=== PATIENT | male | born 1960 | race Caucasian/White ===

== ENCOUNTER 2020-10-04 14:38 | Inpatient (IN) | payer OTHER ==
[~2020-10-04 14:38] MED LIST: Dexamethasone 20 MG/5 ML VIAL ONE; Glycopyrrolate 0.2 MG/ML 5 ML SYRINGE ONE; Ketorolac Tromethamine 30 MG/ML VIAL ONE; Lidocaine 1% PF 5 ML VIAL ONE; Ondansetron PF 4 MG/2 ML Vial ONE; PHENYLEPHRINE-NS 100 MCG/ML 10 ML SYRINGE ONE; PROPOFOL 200 MG/20 ML VIAL ONE; Rocuronium Bromide 10 MG/ML (10ML VIAL) ONE; ePHEDrine 50 MG/ML VIAL ONE
[2020-10-04] MEDS ORDERED: Boostrix 0.5 ML (Tdap) VIAL ONE (14:52)
[2020-10-04 14:58] LABS: #Basophils 0.1 thou/uL (0.0-0.2); #Eosinphils 0.3 thou/uL (0.0-0.7); #Monocytes 0.6 thou/uL (0.11-0.59); #Neutrophils 5.5 thou/uL (1.40-6.50); %Basophils 1.2 % (0.0-1.0); %Lymphocytes 23.7 % (21.0-51.0); %Monocytes 7.5 % (0.0-10.0); %Neutrophils 64.6 % (42.0-75.0); Hemoglobin 14.8 g/dL (14.0-18.0); Mean Corpuscular Hemoglobin 33.5 pg (27.0-31.0); Mean Corpuscular Volume 95.5 fL (78.0-98.0); Mean Platelet Volume 8.1 fL (7.4-10.4); Platelet Count 233 thou/uL (130-400); RBC Distribution Width 11.5 % (11.5-14.5); Red Blood Cell (RBC) Count 4.42 mill/uL (4.70-6.10); White Blood Cell (WBC) Count 8.5 thou/uL (4.8-10.8)
[2020-10-04] MEDS ORDERED: Morphine 4 MG/ML VIAL ONE (15:00)
[2020-10-04] MEDS ORDERED: Ondansetron PF 4 MG/2 ML Vial ONE (15:00)
--- NOTE | 2020-10-04 15:04 | RAD ---
Exam: Exam: Left hand 3 views: HISTORY: Injury, cut with chainsaw COMPARISON: None FINDINGS: Soft tissue swelling, irregularity, and injury of the lateral soft tissues of the wrist extending fro m just distal to the radial styloid up to the proximal first metacarpal. There appears to be at least one or 2 probable small foreign bodies. No evidence for fracture, dislocation, or other significant acute osseous abnormality. IMPRESSION: Extensive soft tissue injury to the lateral region of the wrist with probable 2 tiny foreign bodies w ithout overt acute fracture or dislocation.
[2020-10-04 15:06] LABS: PTT 28.6 sec (22.9-36.1); Prothrombin Time 13.5 sec (12.0-14.7)
[2020-10-04 15:07] LABS: ALT (SGPT) 23 U/L (8-55); AST (SGOT) 26 U/L (5-34); Albumin 4.5 g/dL (3.5-5.0); Alkaline Phosphatase 68 U/L (40-110); Anion Gap 13 mmol/L (10-20); BUN (Urea Nitrogen) 10 mg/dL (8.4-25.7); Bilirubin, Total 0.7 mg/dL (0.2-1.2); Calc. Creatinine Clearance 0 mL/min (70-130); Carbon Dioxide 21 mmol/L (22-29); Chloride 103 mmol/L (98-107); Globulin 3.4 g/dL (2.4-3.5); Glucose 112 mg/dL (70-105); Potassium 3.8 mmol/L (3.5-5.1); Protein, Total 7.9 g/dL (6.0-8.3); Sodium 133 mmol/L (136-145)
--- NOTE | 2020-10-04 15:10 | RAD ---
Exam: Left forearm 2 views: HISTORY: Injury from trauma, chainsaw injury, laceration COMPARISON: None FINDINGS: Extensive soft tissue injury involving the lateral and volar aspect of the wrist. No evidence for acu te fracture or dislocation of the forearm. 2 tiny possible foreign bodies were demonstrated in the lateral soft tissues of the wrist on the hand x-ray. IMPRESSION: Extensive soft tissue injury. No overt fracture.
[2020-10-04] MEDS ORDERED: Dextrose 50% Abboject 50 ML SYRINGE SLOW IVP PRN (15:18)
[2020-10-04] MEDS ORDERED: hydrALAZINE 20 MG/ML VIAL SLOW IVP PRN (15:18)
[2020-10-04] MEDS ORDERED: Dextrose 5% in Water 1,000 ML IV PRN (15:18)
[2020-10-04] MEDS ORDERED: Ondansetron PF 4 MG/2 ML Vial IVP PRN (15:18)
[2020-10-04] MEDS ORDERED: Morphine 4 MG/ML VIAL SLOW IVP PRN (15:18)
[2020-10-04] MEDS ORDERED: Acetaminophen/Codeine 30-300mg Tablet PO PRN ×2 (15:20)
[2020-10-04] MEDS ORDERED: Cyclobenzaprine 10 MG TAB PO PRN (15:21)
--- NOTE | 2020-10-04 15:37 | RAD ---
RADIOGRAPH CHEST 1 VIEW: DATE: 10/04/2020 HISTORY: 60-year-old male for preoperative evaluation FINDINGS: There are no airspace densities, pulmonary edema, pneumothorax, or cardiomegaly. The lateral costophr enic angles are sharp. IMPRESSION: No acute cardiopulmonary findings.
--- NOTE | 2020-10-04 16:19 | HP ---
REFERRING PHYSICIAN: Dr. Berger. TRAUMA SURGEON: Dr. Jose. CONSULTING PHYSICIAN: Dr. Raines. HISTORY OF PRESENT ILLNESS: The patient is a 60-year-old male presented to the emergency department by POV after he fell about 5 feet from a ladder. After he fell, a chainsaw fell onto his left upper extremity. His brought him to the emergency department. He was a level 2 trauma activation. He was hemodynamically stable. Upon evaluation, he had two lacerations to the left forearm and left thenar area of the left hand. The patient is right-hand dominant. He is hemodynamically stable. Motor and sensation grossly intact in the left hand. He denies cough, shortness of breath, nausea, vomiting, abdominal pain, chest pain, numbness or tingling in his bilateral upper and lower extremities, back pain or neck pain. REVIEW OF SYSTEMS: All additional 10-point review of systems negative except as indicated above. PAST MEDICAL HISTORY: Hypertension. PAST SURGICAL HISTORY: C-spine surgery, diskectomy. SOCIAL HISTORY: The patient chews tobacco. He drinks between one and three beers a day. He has never had withdrawal type symptoms. He denies any history of drug use. He is an forensic accountant and still works. He does not use any assistive devices to get around. MEDICATIONS: 1. Lisinopril. 2. Metoprolol. 3. Atorvastatin. ALLERGIES: NO KNOWN DRUG ALLERGIES. PHYSICAL EXAMINATION: VITAL SIGNS: Temperature 98.8, pulse 82, respirations 12, oxygen saturation 98% on room air, blood pressure 170/92. PRIMARY SURVEY: Airway intact. Adequate breath sounds bilaterally. 2+ pulses in bilateral radials, femorals, and DPs. Left hand is well perfused. Dressing to left upper extremity is in place. There appears to be no bleeding around the dressing. GCS 15. Gross motor and sensation intact. No signs of active bleeding. The patient does have two lacerations to his left upper extremity, one to the left forearm and one to the left thenar region of the hand. SECONDARY SURVEY: HEAD: Normocephalic and atraumatic. No gross palpable skull deformities or tenderness. EYES: Pupils 3 to 2, equal, round, reactive to light bilaterally. ENT: No signs of trauma. C-SPINE: No step-offs or deformities. Nontender. C-collar not in place. CHEST: Nontender. No crepitus. No abrasions or ecchymosis noted. ABDOMEN: Soft, nontender, nondistended. PELVIS: Stable to palpation. RECTAL: Deferred. GENITOURINARY: Deferred. EXTREMITIES: The patient has about a 5 cm laceration to the left forearm as well as an unknown size laceration to the anterior aspect of the left thenar region of the hand. No other signs of trauma in the bilateral lower and right upper extremity. The patient is right-hand dominant. BACK/SPINE: No step-offs, deformities, or tenderness to palpation of thoracic or lumbar spine. No abrasions or ecchymosis noted. NEUROLOGIC: 5/5 strength in bilateral braille teacher, plantar flexion, dorsiflexion. Gross normal sensation x4 extremities. LABORATORY FINDINGS: White count 8.5, hemoglobin 14.8, hematocrit 42.2, platelets 233. INR 1.0, PTT 28.6. Sodium 133, potassium 3.8, chloride 103, bicarb 21, BUN 10, creatinine 0.83, glucose 112, total bilirubin 0.7, AST 26, ALT 23, alkaline phosphatase 68, plasma alcohol 97. DIAGNOSTIC FINDINGS: X-ray of the left forearm demonstrates extensive soft tissue injury. No overt fracture. X-ray of the left hand demonstrates extensive soft tissue injury to the lateral region of the wrist with probably two tiny foreign bodies without overt acute fracture or dislocation. Chest x-ray demonstrates no acute cardiopulmonary findings. ASSESSMENT: 1. Status post mechanical fall from ladder while intoxicated. 2. Left forearm laceration x1 and left hand laceration x1. No associated fracture but with foreign bodies present. 3. History of hypertension. 4. Acute alcohol intoxication, mild. PLAN: The patient will be admitted to the Trauma Service. He is n.p.o. Dr. Raines of Hand Surgery has been consulted, who plans to take the patient to the OR for washout and evaluation. The patient will likely spend the night as he will need IV antibiotics postoperatively. We will treat him with oral pain medications as well as IV if needed. Repeat blood work in the morning, OT to evaluate the patient tomorrow. Likely discharge home tomorrow. This patient was seen and evaluated by myself and Dr. Jose in the emergency department. Job ID: [id number] [facility]
[2020-10-04 16:28] LABS: SARS-CoV-2 NAA Rapid Test DETECTED (NotDetected)
[2020-10-04] MEDS ORDERED: Gentamicin 80 MG/2 ML VIAL ONE (16:43)
[2020-10-04] MEDS ORDERED: Fentanyl 100 MCG/2 ML VIAL ONE ×2 (16:59→18:41)
[2020-10-04] MEDS ORDERED: HYDROmorphone 0.5 MG/0.5 ML SYRINGE ONE (16:59)
[2020-10-04] MEDS ORDERED: Phenylephrine 10 MG/ML VIAL ONE (17:00)
[2020-10-04] MEDS ORDERED: Meperidine HCl/PF 25 MG/ML VIAL IM PRN (17:01)
[2020-10-04] MEDS ORDERED: Ketorolac Tromethamine 30 MG/ML VIAL IVP PRN (17:01)
[2020-10-04] MEDS ORDERED: Bupivacaine PF 0.5% 30 ML VIAL ONE (17:03)
[2020-10-04] MEDS ORDERED: Bacitracin Zinc Ointment 30 gm TUBE ONE (17:03)
[2020-10-04] MEDS ORDERED: Betamet Acet/Betamet Na Ph 30 MG/5 ML VIAL ONE (17:03)
[2020-10-04] MEDS ORDERED: Sodium Chloride 0.9% 30 ML ONE (17:03)
[2020-10-04] MEDS ORDERED: Promethazine HCl 25 MG/ML VIAL IM PRN (18:32)
[2020-10-04] MEDS ORDERED: Ondansetron HCl/PF 4 MG/2 ML Vial IVP PRN (18:32)
[2020-10-04] MEDS ORDERED: Promethazine HCl 25 MG/ML VIAL SLOW IVP PRN (18:32)
[2020-10-04] MEDS ORDERED: PACU-Morphine 4MG/ML VIAL SLOW IVP PRN (18:32)
[2020-10-04] MEDS ORDERED: HYDROmorphone 2 MG/ML VIAL SLOW IVP PRN (18:32)
[2020-10-04] MEDS ORDERED: Sodium Chloride 0.9% 1,000 ML IV SCH (19:30)
[2020-10-04] MEDS: Senokot S 8.6-50 MG TAB PO SCH (20:30)
[2020-10-04 20:33] VITALS: BMI 25.2
[2020-10-04] MEDS: Famotidine/PF 20 mg/2ml Vial SLOW IVP SCH (21:37)
[2020-10-04] MEDS: Gabapentin 300 MG CAP PO SCH (21:38)
[2020-10-04] MEDS: Gentamicin Sulfate 80 MG in Premix Bag 1 BAG IVPB SCH (21:38)
[2020-10-05] MEDS: Acetaminophen 325 MG TAB PO SCH ×4 (00:27→17:21)
[2020-10-05] MEDS: Vancomycin 1 GM in Premix Bag 1 BAG IVPB SCH ×2 (04:35→16:16)
[2020-10-05] MEDS: Gentamicin Sulfate 80 MG in Premix Bag 1 BAG IVPB SCH ×3 (04:36→21:28)
[2020-10-05] MEDS: Polyethylene Glycol 3350 17 GM Packet PO SCH (07:59)
[2020-10-05] MEDS: Senokot S 8.6-50 MG TAB PO SCH ×2 (07:59→19:11)
[2020-10-05] MEDS: Gabapentin 300 MG CAP PO SCH ×3 (07:59→19:20)
[2020-10-05] MEDS: Famotidine/PF 20 mg/2ml Vial SLOW IVP SCH ×2 (08:00→19:21)
[2020-10-05 08:07] LABS: #Lymphocytes 0.5 thou/uL (1.20-3.40); #Monocytes 0.3 thou/uL (0.11-0.59); #Neutrophils 9.1 thou/uL (1.40-6.50); %Eosinophils 0.1 % (0.0-10.0); %Lymphocytes 4.5 % (21.0-51.0); %Monocytes 3.3 % (0.0-10.0); %Neutrophils 92.1 % (42.0-75.0); Hemoglobin 13.1 g/dL (14.0-18.0); Mean Corpuscular HGB CONC 34.6 g/dL (32.0-36.0); Mean Corpuscular Hemoglobin 33.2 pg (27.0-31.0); Mean Corpuscular Volume 95.9 fL (78.0-98.0); Mean Platelet Volume 8.4 fL (7.4-10.4); Platelet Count 209 thou/uL (130-400); RBC Distribution Width 11.4 % (11.5-14.5); Red Blood Cell (RBC) Count 3.96 mill/uL (4.70-6.10); White Blood Cell (WBC) Count 9.8 thou/uL (4.8-10.8)
[2020-10-05 08:30] LABS: Anion Gap 14 mmol/L (10-20); BUN (Urea Nitrogen) 9 mg/dL (8.4-25.7); Calc. Creatinine Clearance 104 mL/min (70-130); Calcium 8.5 mg/dL (7.8-10.44); Carbon Dioxide 19 mmol/L (22-29); Chloride 104 mmol/L (98-107); Glucose 169 mg/dL (70-105); Magnesium 1.8 mg/dL (1.6-2.6); Phosphorus 2.9 mg/dL (2.3-4.7); Potassium 4.3 mmol/L (3.5-5.1); Sodium 133 mmol/L (136-145)
[2020-10-05] MEDS ORDERED: Sodium Phosphate 15 MMOL in Sodium Chloride 0.9% 250 ML 250 ML IVPB SCH (09:00)
[2020-10-05] MEDS ORDERED: Magnesium 2 GM/50 ML 2 GM in Premix Bag 1 BAG IVPB SCH (09:00)
[2020-10-05] MEDS: Metoprolol Tartrate 50 MG TAB PO SCH (10:36)
[2020-10-05] MEDS: Lisinopril 20 MG TAB PO SCH ×2 (10:36→19:20)
--- NOTE | 2020-10-05 18:40 | PRG ---
DATE OF SERVICE: 10/05/2020 SUBJECTIVE: The patient was seen this morning during rounds. He was sitting up in bed with no signs of acute distress. He had a VAC to his left upper extremity with a postoperative dressing in place. He reports pain is controlled. Motor and sensation intact to left upper extremity. Tolerating a diet. OBJECTIVE: VITAL SIGNS: Temperature 98.9, pulse 84, respirations 16, oxygen saturation 97% on room air, blood pressure 161/81. GENERAL: Well-appearing middle-aged male, sitting up in bed with no signs of acute distress. PULMONARY: Equal chest rise and fall. Clear breath sounds bilaterally. No signs of acute respiratory distress. CARDIAC: Regular rate and rhythm. GASTROINTESTINAL: Abdomen is soft, nontender, and nondistended. EXTREMITIES: 2+ pulses in all extremities. Gross motor and sensation are intact. Postoperative dressing to left upper extremity is clean, dry, and intact. Wound VAC to left hand is in place with dark bloody fluid in canister. NEUROLOGIC: GCS is 15. LABORATORY FINDINGS: White count 9.8, hemoglobin 13.1, hematocrit 37.9, platelets 209. Sodium 133, potassium 4.3, chloride 104, bicarb 19, BUN 9, creatinine 0.85, glucose 169, phosphorus 2.9, magnesium 1.8. DIAGNOSTIC FINDINGS: There are no new diagnostic findings to report. ASSESSMENT: 1. Status post mechanical fall from 5 feet. 2. Laceration to left forearm and left wrist with tendon injury. 3. History of hypertension. PLAN: Continue current diet and pain regimen. Restart home medications. Continue antibiotics per Dr. Raines. Discontinue IV fluids. Discontinue morphine. Replace phosphorus and magnesium. The patient is to go to the OR tomorrow with Dr. Raines. We will follow up his recommendations postop. He will be able to go home. Job ID: [id number]
[2020-10-05 22:33] LABS: SARS-CoV-2 PCR by NAA Not Detected (NotDetected)
[2020-10-06] MEDS: Acetaminophen 325 MG TAB PO SCH ×4 (00:14→18:32)
[2020-10-06] MEDS: Vancomycin 1 GM in Premix Bag 1 BAG IVPB SCH ×2 (05:06→19:32)
[2020-10-06] MEDS: Metoprolol Tartrate 50 MG TAB PO SCH ×2 (05:09→07:54)
[2020-10-06] MEDS: Famotidine/PF 20 mg/2ml Vial SLOW IVP SCH (07:53)
[2020-10-06] MEDS: Lisinopril 20 MG TAB PO SCH (08:30)
[2020-10-06] MEDS: Gabapentin 300 MG CAP PO SCH ×2 (08:31→14:32)
[2020-10-06] MEDS: Polyethylene Glycol 3350 17 GM Packet PO SCH (08:31)
[2020-10-06] MEDS: Senokot S 8.6-50 MG TAB PO SCH (08:32)
[2020-10-06] MEDS ORDERED: ePHEDrine 50 MG/ML VIAL ONE (09:30)
[2020-10-06] MEDS ORDERED: Ondansetron PF 4 MG/2 ML Vial ONE (09:30)
[2020-10-06] MEDS ORDERED: PROPOFOL 200 MG/20 ML VIAL ONE (09:30)
[2020-10-06] MEDS ORDERED: Lidocaine 1% PF 5 ML VIAL ONE (09:30)
[2020-10-06] MEDS ORDERED: Dexamethasone 20 MG/5 ML VIAL ONE (09:30)
[2020-10-06] MEDS ORDERED: Bupivacaine PF 0.5% 30 ML VIAL ONE ×2 (10:41→14:46)
[2020-10-06] MEDS ORDERED: Bacitracin Zinc Ointment 30 gm TUBE ONE (14:46)
[2020-10-06] MEDS ORDERED: Thrombin 5000 UNITS/5 ML VIAL ONE (14:46)
[2020-10-06] MEDS ORDERED: Sodium Chloride 0.9% 0 ML ONE (14:46)
[2020-10-06] MEDS ORDERED: Fentanyl 100 MCG/2 ML VIAL ONE ×2 (15:04→15:46)
--- NOTE | 2020-10-06 15:20 | PQF ---
CLINICAL DOCUMENTATION CLARIFICATION FORM: Dear Dr. Carrasco, HOMER Date: 10/06/2020 1500 Please exercise your independent, professional judgment in responding to the clarification form. Clinical indicators are provided on the bottom of this form for your review. COVID 19 Clarification and Manifestations: Please check appropriate box(es): A. COVID 19 virus diagnosis Validation: [ ] COVID-19 is ruled in (if so, please provide the evidence used to support this diagnosis) [ ] COVID-19 has been ruled out [ ] Other explanation of clinical findings [ X] Unable to determine In addition, please specify: Present on Admission (POA): [ ] Yes [ ] No [X ] Unable to determine For continuity of documentation, please document condition throughout progress notes and discharge summary. Thank You. To be completed by CDI/Coding staff for physician review: Clinical Indicators - Signs / Symptoms / Labs with Results and Location in Medical Record SARS-CoV-2 Rap RNA ( RT-PCR) DETECTED A* (10/04) Today he tested positive for the rapid test. Infection control has advised us to treat the patient in the isolation protocol due to the interval between positive test is close to 90 days. We have advised the patient and to re- test with PCR in 5 days, and quarantine at home till then. ([facility] record) 10/04 Risk Factors with Results and Location in Medical Record Recent positive history of Covid in July ( [facility] Record) 10/04 Treatments with Results and Location in Medical Record Gentamycin IV ( 10/04 present) Isolation protocol Vancomycin IV ( 10/04 present) CDS Signature: Ayanna Varela RN Phone #:[phone] Date: 10/06/2020 This is a permanent part of the Medical Record [facility]
[2020-10-06] MEDS ORDERED: Sodium Chloride 0.9% 20 ML ONE (17:00)
--- NOTE | 2020-10-06 17:16 | PRG ---
DATE OF SERVICE: 10/06/2020 SUBJECTIVE: The patient was seen this morning during rounds with Dr. Uribe. He was sitting up in bed with no signs of acute distress. VAC is in place. The patient is pending OR today with Dr. Raines for re-evaluation of left upper extremity wounds. OBJECTIVE: VITAL SIGNS: Temperature 98.9, pulse 67, respirations 20, oxygen saturation 100% on room air, blood pressure 106/63. GENERAL: Well-appearing elderly male, sitting up in bed with no signs of acute distress. PULMONARY: Equal chest rise and fall. No signs of acute respiratory distress. CARDIAC: Regular rate and rhythm. GI: Abdomen is soft, nontender, nondistended. EXTREMITIES: 2+ pulses in all extremities. Gross motor and sensation intact. Left upper extremity with postop dressing that is clean, dry, and intact. VAC in place with serosanguineous output in canister. NEUROLOGIC: GCS is 15. LABORATORY FINDINGS: There are no new laboratory findings to discuss. DIAGNOSTIC FINDINGS: There are no new diagnostic findings to discuss. ASSESSMENT: 1. Status post mechanical fall from 5 feet. 2. Laceration to left forearm and left wrist with tendon injury. 3. History of hypertension. PLAN: Continue n.p.o. The patient to go to the OR today with Dr. Raines for fixation of multiple left upper extremity tendon injuries. We will continue antibiotics per Dr. Raines's recommendation. We will follow up with further recommendations from Hand Surgery postoperatively. When the patient is ready for discharge, he will be able to go home. This patient was seen and evaluated by Dr. Uribe and myself this morning during rounds. Job ID: [id number]
[2020-10-06 21:13] VITALS: BP 153/79; TEMP 97.6
--- NOTE | 2020-10-07 12:49 | OP ---
DATE OF PROCEDURE: 10/06/2020 PREOPERATIVE DIAGNOSES: 1. Left thumb tendon laceration x3 including the EPB and APL. 2. laceration with exposed joint and bone at the impression fracture . PROCEDURES PERFORMED: 1. EPB tendon laceration repair using flexor tendon programs. 2. APL repair, all 3 sleeves. 3. Microscopic superficial radial nerve repair without complications using microscope and 9-0 Nurolon. 4. Microscopic neuroplasty of all 3 branches of the superficial radial nerve. 5. Application of short-arm splint and thumb spica. ESTIMATED BLOOD LOSS: 25 mL. TOURNIQUET TIME: 111 minutes. INDICATIONS: The patient returns for staged wound management knowing that particle determination would the deciding factor in closure and depth of procedure. DESCRIPTION OF PROCEDURE: After successful general endotracheal anesthesia, the limb prepped and draped. We inspected the limb, found no copious bleeding. We also did not find any particles. So, we felt it was it clean enough for utilization. Once this was done, we used tenotomy scissors, [place] blade, 11 blade knife, curettes, irrigation with 3 L Pulsavac and then 3 L with bulb syringe with antibiotics inside to make sure the wound was clean and it was as far as we could see, tell, smell, and sense. We then released the retinaculum over the first dorsal compartment slightly more palmar, then dorsal but in the midline . This allowed us to visualize the 5 sleeves of tendon within the sheath. This was proximal to the laceration. We first then closed the capsule cover over the trapezium, scaphoid joint with a running 4-0 Vicryl undyed. We then were able to finish debridement and now perform the extensor pollicis longus tendon repair using a suture and this was also done as described above the second sleeve of the four sleeves of the abductor pollicis longus and the EPB. We then used a [id number] buried 4-0 for the small sleeves of the EPB and APL and then oversewed all of these with 6-0 Prolene just as a flexor tendon would be done with the thumb always in extension to accentuate mobilization in the direction of the deformity. At this point, we had repaired EPB, APL, debrided the wound all to include bone and joint. We now brought the microscope onto the field and we visualized superficial radial nerve in multiple sites where laceration occurred. We then placed a performed a neuroplasty, freed the nerve up, and then proceeded with repair simple epitenon closure. The superficial radial nerve was now repaired using microscopic technique after microscopic neuroplasty with 9-0 Nurolon. Then, we had all the tendon repair showing excellent position. We deflated the tourniquet. We closed the wound in 2 layers with a running 4-0 Monocryl undyed and then 4-0 nylon in a mattress pattern interrupted suture to close the epidermis. The patient had excellent hemostasis and a bulky dressing was applied along with a splint and left the operating room without evidence of anesthetic or operative complication. After placing bacitracin, Adaptic, 4 x 4's, and extended, he was placed in a thumb spica splint with a wraparound technique and an ulnar gutter splint for the wrist. Digit was pink and there was no evidence of anesthetic or operative complications. Job ID: [id number]
--- NOTE | 2020-10-07 12:49 | OP ---
DATE OF PROCEDURE: 10/04/2020 PREOPERATIVE DIAGNOSIS: Left thumb multiple tendon laceration, open wound secondary to saw. POSTOPERATIVE DIAGNOSES: 1. Left thumb tendon lacerations times at least 3 superficial nerve laceration. 2. Contaminated wound, too contaminated to close, at the end was approximately 25 x 5 sq cm. FINDINGS: 1. Superficial and marked contamination deep on the skin edges with dirt particles. 2. Open joint with fracture of trapezium. 3. Superficial radial nerve branches x2 lacerated at least. 4. Open joint injury with multiple extensor tendon injuries. Other findings, 1. Intact EPL. 2. Intact median nerve and branches. 3. Intact ulnar nerve. 4. Intact flexor carpi radialis and palmaris longus. PROCEDURES PERFORMED: 1. Debridement of wound, 22 cm, down to and including bone. 2. Debridement of material associated with open fracture. 3. Superficial radial nerve neuroplasty. 4. Application of VAC wound dressing to greater than 100 sq cm. 5. C-arm supervision for debridement of material associated with open fracture. 6. Open treatment of trapezial fracture. INDICATIONS FOR PROCEDURE: Saw to the hand while cutting a tree with contaminated leaf particles seen . DESCRIPTION OF PROCEDURE: After successful general endotracheal anesthesia, the limb was prepped and draped. The patient had the bandage removed, where there was bleeding, but not copious amount, so we prepped and draped. We then exsanguinated the limb and inflated to 250 mmHg. We then debrided the wound using combination of [place] blade, tenotomy scissors, and 11 blade knife and we extended his incisions, where he had approximately 8 cm incision and a 4 cm incision. I extended the incision proximally about 2 cm so they can meet. elevated 1 skin flap, debrided all the multiple particles, which we saw under the loupe magnification, debrided the material associated with the open fracture there was no previous injury. Once we have done all the debridements using instruments listed above and finished the irrigation with 6 L normal saline, Pulsavac pressure, we then brought the loupe onto the field and we found superficial radial nerve and dissected, its most radial 2 branches were cut and we found the donors, but we decided since it was in a dirty wound environment, we did not want to perform a nerve repair, this was neurovascularly compromised, it would not be indicated at this time. We then assessed the wound, dressed it open. We looked inside the pockets of skin folds and decided to not close the wound. He had a VAC dressing applied, it was sq cm, had excellent suctioning, went from the operating room to the floor without evidence of anesthetic complication. Job ID: [id number]
[2020-10-08 09:39] LABS: Fungus Stain Final report (.)
[2020-10-08 09:39] LABS: Fungus Stain Final report (.)
--- NOTE | 2020-10-09 03:49 | PQF ---
CLINICAL DOCUMENTATION CLARIFICATION FORM: Dear : Ari Garibay Date / Time: 10/09/2020347 Please exercise your independent, professional judgment in responding to the clarification form. Clinical indicators are provided on the bottom of this form for your review Please check appropriate box(es): [ ] Excisional Debridement: : [ ] Skin [ ] Subcutaneous [ ] Fascia [ ] Muscle [ ] Tendon [ ] Bone [ ] Non-excisional Debridement: (Removal by ?ushing, brushing, chemical, or washing) Depth / layer: (deepest layer of debridement): [ ] Skin [ ] Subcutaneous [ ] Fascia [ ] Muscle [ ] Tendon [ ] Bone [ ] Other procedure diagnosis [ ] Unable to determine Physician Signature: Date/Time: For continuity of documentation, please document condition throughout progress notes and discharge summary. Thank You. To be completed by CDI/Coding staff for physician review: Present Clinical Indicators - Signs / Symptoms / Labs Results and Location in Medical Record [x] We then debrided the wound using combination of [place] blade, tenotomy scissors, and 11 blade knife and we extended his incisions, where he had approximately 8 cm incision and a 4 cm incision. Operative report 10/04 Dr Raines [x] I extended the incision proximally about 2 cm so they can meet elevated 1 skin rosa debrided all the multiple particles, which we saw under the loupe magnification debrided the material associated with the open fracture there was no previous injury. Operative report 10/04 Dr Raines Present Risk Factors Results and Location in Medical Record [x] 60 year-old Male Operative report 10/04 Dr Raines [x] Open joint with fracture of trapezium Operative report 10/04 Dr Raines [x] Superficial radial nerve branches x2 laceration Operative report 10/04 Dr Raines [x] Open joint injury with multiple extensor tendon injuries Operative report 10/04 Dr Raines Present Treatments Results and Location in Medical Record [x] Debridement of wound 22 cm, down and including bone Operative report 10/04 Dr Raines [x] Debridement of material associated with open fracture Operative report 10/04 Dr Raines CDS/Speech Correction Assistant Signature: Geno Littlejohnkanchan Phone #: ext [phone] Date/Time: 10/09/20347 This is a permanent part of the Medical Record [facility]
[2020-10-09] MEDS ORDERED: Ibuprofen 200 MG TAB PO SCH (22:00)
[2020-10-27 13:11] LABS: Fungus Culture Final report (.); Fungus Culture Result 1 Candida ciferrii (.); Fungus Culture Result 2 Curvularia species (.)
[2020-10-31 09:16] LABS: Fungus Culture Final report (.)
== END 2020-10-06 21:00 | disposition home or self-care (01) | DRG 513 ==
LOC: ERS 14:38 → SDC 16:15 → T4-A 16:26
PROVIDERS: ADMIT Orthopaedic Surgery Hand Surgery; ATTEND Orthopaedic Surgery Hand Surgery
PROC: 01Q60ZZ Repair Radial Nerve, Open Approach (ICD-10-PCS; principal; 2020-10-04)
PROC: 0PBN0ZZ Excision of Left Carpal, Open Approach (ICD-10-PCS; 2020-10-04)
PROC: 0LQ80ZZ Repair Left Hand Tendon, Open Approach (ICD-10-PCS; 2020-10-06)
PROC: 3E0T3BZ Introduction of Anesthetic Agent into Peripheral Nerves and Plexi, Percutaneous Approach (ICD-10-PCS; 2020-10-06)
PROC: 0PDN0ZZ Extraction of Left Carpal, Open Approach (ICD-10-PCS; 2020-10-06)
DX: S62.172B Displaced fracture of trapezium [larger multangular], left wrist, initial encounter for open fracture (principal); U07.1 COVID-19; S66.222A Laceration of extensor muscle, fascia and tendon of left thumb at wrist and hand level, initial encounter; S51.812A Laceration without foreign body of left forearm, initial encounter; W11.XXXA Fall on and from ladder, initial encounter; F10.129 Alcohol abuse with intoxication, unspecified; Y90.4 Blood alcohol level of 80-99 mg/100 ml; I10 Essential (primary) hypertension; Z79.899 Other long term (current) drug therapy; Z23 Encounter for immunization; W29.3XXA Contact with powered garden and outdoor hand tools and machinery, initial encounter; F17.220 Nicotine dependence, chewing tobacco, uncomplicated
CPT/HCPCS: 36415; 71045; 80048; 80053; 80307; 83735; 84100; 85025; 85610; 85730; 86850; 86900; 86901; 87070; 87102; 87205; 87206; 87635; 90471; 90715; 96365; 96375; J0360; J0690; J0702; J1100; J1170; J1580; J1885; J2270; J2370; J2405; J2704; J3010; J3370; J3475; J3490; J7050; S0020; S0028; U0002; U0003; U0005